=== PATIENT | female | born 2000 | race Caucasian/White ===

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

== ENCOUNTER 2022-11-22 11:11 | Emergency (ER) | payer MEDICAID ==
[~2022-11-22] VITALS: Ht 154.9 cm; Wt 91.0 kg
[2022-11-22 11:57] VITALS: BP 101/72
== END 2022-11-22 18:02 | disposition left against medical advice (07) ==
LOC: ER 11:11
DX: Z53.21 Procedure and treatment not carried out due to patient leaving prior to being seen by health care provider (principal)

== ENCOUNTER 2023-11-04 23:27 | Emergency (ER) | payer MEDICAID, OTHER ==
[~2023-11-04] VITALS: Ht 152.4 cm; Wt 86.0 kg
[2023-11-04 23:52] VITALS: RESP 18; O2SAT 100
[2023-11-04 23:53] VITALS: BP 122/89; PULSE 91; TEMP 98.9
[2023-11-05] MEDS ORDERED: BENZ100C86 MT (00:58)
[2023-11-05] MEDS ORDERED: DEXAMETHASONE 10 MG/ML VIAL PO ONE (01:00)
== END 2023-11-05 01:17 | disposition left against medical advice (07) ==
LOC: ER 23:27
DX: J02.9 Acute pharyngitis, unspecified (principal); B54 Unspecified malaria
CPT/HCPCS: 99281